=== PATIENT | male | born 1980 | race Caucasian/White ===

== ENCOUNTER 2021-03-01 13:55 | Emergency (ER) | payer BC ==
[~2021-03-01] VITALS: Ht 175.3 cm; Wt 124.7 kg
[2021-03-01 14:39] VITALS: BP 159/88
--- NOTE | 2021-03-01 14:39 | NUR ---
Patient discharged to home in stable condition. Written and verbal after care instructions given. Patient verbalizes understanding of instructions. Stressed follow up or return to ER for worsening s/s.
== END 2021-03-01 14:39 | disposition home or self-care (01) ==
LOC: ER 13:55
DX: S46.202A Unspecified injury of muscle, fascia and tendon of other parts of biceps, left arm, initial encounter (principal); X50.0XXA Overexertion from strenuous movement or load, initial encounter; X50.9XXA Other and unspecified overexertion or strenuous movements or postures, initial encounter; Y93.89 Activity, other specified; Y92.89 Other specified places as the place of occurrence of the external cause; L40.50 Arthropathic psoriasis, unspecified
CPT/HCPCS: 73060; A4663

== ENCOUNTER 2021-03-07 06:51 | Outpatient (CLI) | payer BC | END 2021-03-07 23:59 | disposition home or self-care (01) | LOC: LAB 06:51 | PROVIDERS: ATTEND Internal Medicine | DX: Z01.812 Encounter for preprocedural laboratory examination (principal); Z20.822 Contact with and (suspected) exposure to COVID-19 ==

== ENCOUNTER 2021-03-09 11:00 | Day surgery (SDC) | payer BC ==
[2021-03-09] MEDS ORDERED: KETOROLAC TROMETHAMINE 30 MG INJ IM ONE (11:01)
[2021-03-09] MEDS ORDERED: PROPOFOL 200 MG/20 ML BOTTLE IV ONE (11:01)
[2021-03-09] MEDS ORDERED: DEXAMETHASONE SOD PHOSPHATE 4 MG INJ IV ONE (11:01)
[2021-03-09] MEDS ORDERED: ONDANSETRON 4 MG/2 ML VIAL IV ONE (11:01)
[2021-03-09] MEDS ORDERED: LIDOCAINE-MPF 2% 5 ML VIAL IJ ONE (11:01)
[2021-03-09 11:40] LABS: HEMATOCRIT 48.5 % (36.7-47.1); MEAN CORPUSCULAR HEMOGLOBIN 31.8 uug (23.8-33.4); MEAN CORPUSCULAR VOLUME 92.6 fL (73.0-96.2); PLATELET COUNT (AUTO) 303 K/uL (152-348)
[2021-03-09 11:42] LABS: *BILIRUBIN,URIN NEGATIVE (NEGATIVE); *BLOOD, URINE NEGATIVE (NEGATIVE); *CLARITY,URINE CLEAR (CLEAR); *COLOR,URINE YELLOW (YELLOW); *KETONES,URINE NEGATIVE (NEGATIVE); *UROBILINOGEN,URINE 0.2 E.U./dl (NORMAL); LEUKOCYTE ESTERASE ,URINE NEGATIVE (NEGATIVE); NITRITE, URINE NEGATIVE (NEGATIVE); UGLUCOSE NEGATIVE (NEGATIVE)
[2021-03-09] MEDS ORDERED: hydrALAZINE HCL 20 MG/1 ML VIAL ONE (11:45)
[2021-03-09 11:50] LABS: CREATININE 1.3 mg/dL (0.6-1.3); POTASSIUM 4.3 mmol/L (3.5-5.1)
[2021-03-09] MEDS ORDERED: hydrALAZINE HCL 20 MG/1 ML VIAL IV ONE (12:00)
[2021-03-09 12:01] LABS: BILIRUBIN,TOTAL 0.5 mg/dL (0.2-1.0); TOTAL PROTEIN, SERUM 7.7 g/dL (6.4-8.2)
[2021-03-09] MEDS ORDERED: POLYMYXIN B SULFATE 500,000 UNITS VIAL ONE (12:11)
[2021-03-09] MEDS ORDERED: LABETALOL HCL 100 MG/20 ML VIAL ONE ×2 (12:49→13:16)
[2021-03-09] MEDS ORDERED: FENTANYL CITRATE 100 MCG/2 ML AMPUL ONE ×2 (13:16→14:46)
[2021-03-09] MEDS ORDERED: GLYCOPYRROLATE 0.2 MG/ML VIAL ONE (13:17)
[2021-03-09] MEDS ORDERED: ROCURONIUM BROMIDE 50 MG/5 ML VIAL ONE (13:17)
[2021-03-09] MEDS ORDERED: BUPIVACAINE/EPI PF 0.25% 30 ML VIAL ONE (13:44)
[2021-03-09] MEDS ORDERED: ONDANSETRON 4 MG/2 ML VIAL ONE (14:48)
[2021-03-09] MEDS ORDERED: OXYCODONE/APAP 5-325 MG TABLET ONE (16:35)
== END 2021-03-09 17:15 | disposition home or self-care (01) ==
LOC: DS 11:00
PROVIDERS: ATTEND Orthopaedic Surgery Sports Medicine
DX: S46.212A Strain of muscle, fascia and tendon of other parts of biceps, left arm, initial encounter (principal); M66.822 Spontaneous rupture of other tendons, left upper arm; I10 Essential (primary) hypertension; M19.90 Unspecified osteoarthritis, unspecified site; Z79.899 Other long term (current) drug therapy; Z98.890 Other specified postprocedural states; X58.XXXA Exposure to other specified factors, initial encounter; Y93.89 Activity, other specified; Y92.89 Other specified places as the place of occurrence of the external cause; Y99.8 Other external cause status
CPT/HCPCS: 24342; 36415; 80053; 81003; 85025; 85730; C1713; J0360; J1100; J1885; J2405 ×2; J3010 ×2; J3490 ×5; J7120; A4649; A4663